=== PATIENT | female | born 1960 | race Native Hawaiian/Other Pacific Islander ===

== ENCOUNTER → 2020-11-23 | Outpatient (CLI) | payer BC ==
[~2020-11-23] MED LIST: BYSTOLIC10 MG PO; CALCITRIOL PO; FERROUS SU325 MG/TAB PO; LISINOPRIL10 MG PO; LOPRESSOR 225 MG/TAB PO; VENTOLIN0.09 MG IH; VITAMIN D 50,1.25 MG PO
== END ==
LOC: COL.PUL 07:24
DX: R06.02 Shortness of breath (principal)

== ENCOUNTER → 2020-12-11 | Outpatient (CLI) | payer BC | LOC: COL.PUL 07:57 | DX: R06.02 Shortness of breath (principal) ==

== ENCOUNTER → 2023-02-18 | Outpatient (CLI) | payer BC | LOC: COL.PUL 13:51 | DX: R06.02 Shortness of breath (principal); Z87.891 Personal history of nicotine dependence ==